=== PATIENT | male | born 1970 | race Caucasian/White ===

== ENCOUNTER 2023-09-02 06:30 | Outpatient (OUT) | payer OTHER, SELFPAY ==
[2023-09-02 08:08] LABS: Free T4 1.08 ng/dL (0.76-1.46)
[2023-09-02 08:13] LABS: Prostate Specific Antigen Scrn 0.24 ng/mL (<=4.00)
== END 2023-09-02 06:31 | disposition home or self-care (01) ==
LOC: LAB 06:30
PROVIDERS: PCP Family Medicine
DX: E55.9 Vitamin D deficiency, unspecified (principal); Z13.21 Encounter for screening for nutritional disorder; R53.83 Other fatigue; Z13.29 Encounter for screening for other suspected endocrine disorder; Z12.5 Encounter for screening for malignant neoplasm of prostate
CPT/HCPCS: 36415; 82306; 82607; 84439; G0103